=== PATIENT | female | born 1965 | race American Indian/Alaskan Native ===

== ENCOUNTER 2020-10-16 13:49 | Outpatient (CLI) | payer MEDICARE ==
[2020-10-16] MEDS ORDERED: LIDOCAINE (1%) 10 MG/1 ML VIAL 20 ML MDV ONE (15:07)
--- NOTE | 2020-10-16 16:10 | Short Stay Summary ---
Short Stay Documentation Date of service: 10/16/20 - History Principal diagnosis: back pain with radiculopathy - Allergies and Medications Current Medications: Allergies No Known Allergies Allergy (Verified 10/16/20 14:57) Home Medications Medication Instructions Recorded Confirmed Last Taken Type Empagliflozin [Jardiance] 10 mg PO DAILY 10/16/20 10/16/20 10/15/20 History 10 mg Gabapentin [Neurontin] 800 mg PO BID 10/16/20 10/16/20 10/15/20 History 800 mg HYDROcodone/ACETAMINOPHEN 1 tab PO Q4HR PRN 10/16/20 10/16/20 10/16/20 History [Verdrocet 2.5-325 mg TAB] 1 Ibuprofen [Motrin 800 MG tab] 800 mg PO DAILY PRN 10/16/20 10/16/20 10/16/20 History 800 mg Insulin Glargine [Lantus VIAL] 100 units SC QHS 10/16/20 10/16/20 10/15/20 History 100 Insulin Lispro [Humalog 100 14 units SQ QID 10/16/20 10/16/20 10/15/20 History UNITS/ML Kwikpen] 14 units - Physical exam General appearance: no acute distress Neurological: Normal gait, Normal speech, Normal tone, Sensation intact - Brief post op/procedure progress note Date of procedure: 10/16/20 Pre-op diagnosis: back pain with radiculopathy Post-op diagnosis: same Procedure: lumbar myelogram Anesthesia: local Findings: lumbar spondylosis Surgeon: LIBBY BRIDGES Estimated blood loss: none Pathology: none Condition: stable - Hospital course Hospital course: uneventful - Disposition Condition at discharge: Good Disposition: DC-01 TO HOME OR SELFCARE Short Stay Discharge Plan Follow up with: KAMRAN BECERRA MD [Other] - 7 Days
[2020-10-16] MEDS ORDERED: HYDROcodone/ACETAMINOPHEN 5-325 MG TAB PO ONE (16:32)
[2020-10-16] MEDS ORDERED: HYDROcodone/ACETAMINOPHEN 5-325 MG TAB ONE (16:34)
[2020-10-16 17:34] VITALS: BP 155/65
--- NOTE | 2020-10-16 18:04 | Cat Scan Report ---
CT LUMBAR SPINE WITH MYELOGRAPHIC CONTRAST INDICATION: Spinal stenosis. Low back pain. Prior lumbar surgery. TECHNIQUE: Axial CT images of the lumbar spine were obtained after administration of intrathecal contrast. Sagi ttal and coronal reformatted images were produced. All CT scans at this location are performed using CT dose reduction for ALARA by means of automated exposure control. COMPARISON: None available. FINDINGS: POST-SURGICAL CHANGES: Patient is status post laminectomy at the L4 and L5 levels. ALIGNMENT: Normal alignment is maintained throughout the lumbar region. VERTEBRAE: Reactive change secondary to degenerative disc disease is observed at inferior endplate L4 and superior endplate L5. Widespread anterior and lateral osteophyte formation is noted. Advanced fa cet arthropathy is present throughout. There is no indication of fracture or bone destruction. VISUALIZED SPINAL CORD: The distal thoracic spinal cord and conus are of normal size and shape. Conu s terminates at the inferior endplate of L1.. [id number] ANALYSIS: L1-2: Broad-based disc bulge, facet arthropathy and thickening of the ligamentum flavum combine to pr oduce moderate central canal stenosis at the L1-2 level. The L1 nerve root neuroforamina are adequate ly maintained. L2-3: Small anterior and right lateral osteophytes are demonstrated. Spinal canal and neuroforamina a re adequately maintained L3-4: Advanced facet arthropathy is noted. Thickening of ligamentum flavum is observed. These degener ative changes result in severe central canal stenosis at the L3-4 level. Moderate bilateral neurofora viktoriya stenosis is also observed. L4-5: Status post laminectomy. Loss of disc height and disc vacuum phenomena are noted. Advanced face t arthritic changes are observed. Central disc extrusion flattens the thecal sac slightly. Surgically compressed spinal canal is adequately maintained. Loss of disc height and facet arthropathy contribu te to moderate left-sided and mild right-sided neuroforaminal stenosis at the L4 nerve root level. L5-S1: Status post laminectomy. Moderate facet arthritic changes are observed. Calcified central disc protrusion is identified. There is no associated thecal sac compression. Loss of disc height and fac et arthropathy contributes to moderate bilateral foraminal stenosis at the L5 nerve root level. PARASPINAL SOFT TISSUES: No significant abnormality. IMPRESSION: 1. Severe central canal stenosis L3-4 secondary to facet arthropathy and thickening of ligamentum fla vum. 2. Moderate central canal stenosis L1-2 due to facet arthropathy and thickening of ligamentum flavum. 3. Widespread advanced facet arthropathy. 4. Multifocal neuroforaminal stenosis. Signer Name: Kevin Santos MD Signed: 10/16/2020 6:00 PM Workstation Name: [id number]
--- NOTE | 2020-10-18 07:46 | Fluoroscopy Report ---
FLUOROSCOPY MYELOGRAM LUMBOSACRAL HISTORY: Spinal stenosis, radiculopathy, back pain COMPARISON: None. FINDINGS: Informed consent was obtained. Sterile technique was utilized. 1% lidocaine for skin anesth esia. Using fluoroscopy guidance, lumbar puncture was performed at the L3-4 level. There was spontane ous return of clear CSF. Approximately 12 cc of Omnipaque 180 was injected intrathecally under fluoro scopic observation. The contrast agent was free flowing throughout the lumbar region although moderat e spinal canal narrowing is suspected at L3-4 and L4-5. Please await the formal report from the CT jarred mbar myelogram. The patient tolerated the procedure without difficulty. IMPRESSION: Successful fluoroscopy-guided lumbar myelogram. Fluoroscopy time: 1 minute. Fluoroscopic images: 6 Signer Name: Saul Mcgowan Jr, MD Signed: 10/18/2020 7:41 AM Workstation Name: [id number]
== END 2020-10-16 17:52 | disposition home or self-care (01) ==
LOC: FLUORO 13:49
PROVIDERS: ATTEND Specialist
DX: M48.061 Spinal stenosis, lumbar region without neurogenic claudication (principal); M51.36 Other intervertebral disc degeneration, lumbar region; M47.26 Other spondylosis with radiculopathy, lumbar region; M54.5 Low back pain; F17.200 Nicotine dependence, unspecified, uncomplicated
CPT/HCPCS: 62304; 72131; Q9967